=== PATIENT | female | born 1955 | race Caucasian/White ===

== ENCOUNTER 2024-10-22 10:44 | Outpatient (AMB) | payer MEDICARE, SELFPAY ==
--- NOTE | 2024-10-22 10:57 | A.SPINEOV_ITS ---
Intake Visit Reasons: stenosis lumbar region Intake Note: Ms. Thakkar is here today c/o bilateral leg symptoms. MRI done @ [place] (brought disc). Manager Consumer Required: No Assessment & Plan Assessment & Plan (1) Lumbar stenosis with neurogenic claudication: Code(s): M48.062 - Spinal stenosis, lumbar region with neurogenic claudication Category: Medical Plan: Dear colleague Thank you for referring Zandra Thakkar to the office today with a chief complaint of numbness and discomfort down both legs. HPI: This 69-year-old female with a history of an L4-5 lumbar fusion 10 years ago, presents with progressive signs of numbness and tingling down both legs. She has a constant numbness in her feet that extends up to both legs and thighs to the buttocks when she is walking the legs are giving out sometimes the numbness produces balance problems. She also had an episode of fecal incontin ence. The symptoms started 3 months ago and are rapidly progressive. She does have sharp pain in her posterior thighs and buttocks with frequent cramping with the main symptoms is the progressive numbness. The following conservative treatment options were tried without success antiinflammatories, tylenol, physical therapy PMH: Hypertension, GERD, osteoarthritis, osteopenia Medications: Osteo Bi flex, omeprazole, duloxetine, lisinopril, ibuprofen Allergies: NKDA Social history: [] Physical Exam: Height 5'1 weight 110 lb. Has a lumbar degenerative scoliosis with the apex towards the right side at L2-3. Motor exam is 5/5 throughout. Sensory exam is diminished with loss of sensation on the lateral side of bilateral thighs and diffuse numbness of the distal part of the lower extrem ities. Knee reflexes are present bilaterally. Ankle reflexes are absent. Radiological Studies: MRI of the lumbar spine done at [place] on 08/22/2024 shows a lumbar degenerative scoliosis. There is adjacent degenerative disc disease above the L4-5 fusion with severe canal stenosis at L3-L4 which is increased compared to an MRI of 2014. There is [id number] bilateral neuroforaminal stenosis at this level as well. Dynamic lumbar x-rays obtained today show again the lumbar degenerative scoliosis. I think there is an auto fusion of L1-2 and L2-3. Impression/Plan: This patient is suffering from adjacent degenerative disc disease with neurogenic claudication and rapid neurological deficits due to severe canal stenosis L3-4. I offered her an oblique lumbar interbody fusion to correct the scoliotic curve at L3-4 and indirectly decompress the nerve roots. I would like to obtain a CT of the lumbar spine to confirm my suspicion that the L1-2 and L2-3 levels are already auto fused. If not then I may have to include these levels in the fusion. Thank you for allowing me to participate in your patients care. total time spent was 50 minutes in counseling ,coordination of plan, personal review of imaging, surgical decision making and subsequent plan Yobani Randall MD, PhD Spine Fellowship Trained Neurosurgeon Director, [facility] (2) Adjacent segment disease of lumbar spine with history of fusion procedure: Code(s): M51.369 - Other intervertebral disc degeneration, lumbar region without mention of lumbar back pain or lower extremity pain; Z98.1 - Arthrodesis status Category: Medical Plan f Orders: Orders XR lumbar spine 4V min Today M48.062 - Spinal stenosis, lumbar region with neurogenic claudication Coding Level of Care Code New Pt Level 4 (78711) Diagnoses Lumbar stenosis with neurogenic claudication M48.062 Adjacent segment disease of lumbar spine with history of fusion procedure M51.369; Z98.1
== END 2024-10-22 11:56 | disposition home or self-care (01) ==
LOC: HO.HNS 10:45
PROVIDERS: PCP Physician Assistant Medical; Referring Provider Physician Assistant Medical; Visit Provider Neurological Surgery
DX: M48.062 Spinal stenosis, lumbar region with neurogenic claudication (principal); M51.369 Other intervertebral disc degeneration, lumbar region without mention of lumbar back pain or lower extremity pain; Z98.1 Arthrodesis status
CPT/HCPCS: 99204

== ENCOUNTER 2024-10-22 10:44 | Outpatient (REF) | payer MEDICARE, SELFPAY ==
--- NOTE | ~2024-10-22 | XR_ITS ---
CLINICAL HISTORY: M48.062 - Spinal stenosis, lumbar region with neurogenic claudication --- Additional Notes or Special Instructions: AP lateral flexion extension Radiographs of the lumbar spine, 4 views including flexion and extension Comparison: None available Findings: Status post posterior fusion at L4/L5. Intact hardware. Mild dextrocurvature with the apex at L2 and levocurvature with the apex at L4/L5. Mild multilevel anterolisthesis/retrolisthesis, degenerative. No evidence of instability. No fracture. The vertebral body heights are preserved. There is severe multilevel intervertebral disc space narrowing with large endplate osteophytosis and sclerosis. Vascular calcifications. Impression: No acute findings. Status post posterior fusion at L4/L5 with intact hardware. Severe degenerative change. This document has been electronically signed by: Trish Mojica MD on 10/22/2024 17:09:00
== END 2024-10-22 10:45 | disposition home or self-care (01) ==
LOC: HO.HOSX 10:44
PROVIDERS: PCP Physician Assistant Medical; Referring Provider Physician Assistant Medical; Visit Provider Neurological Surgery
DX: M48.062 Spinal stenosis, lumbar region with neurogenic claudication (principal); M51.369 Other intervertebral disc degeneration, lumbar region without mention of lumbar back pain or lower extremity pain; Z98.1 Arthrodesis status
CPT/HCPCS: 72110; 99202

== ENCOUNTER → 2024-10-22 11:24 | Outpatient (BNV) | payer MEDICARE, SELFPAY | PROVIDERS: PCP Physician Assistant Medical; Referring Provider Physician Assistant Medical; Visit Provider Radiology Diagnostic Radiology | DX: M51.369 Other intervertebral disc degeneration, lumbar region without mention of lumbar back pain or lower extremity pain (principal) | CPT/HCPCS: 72110 ==

== ENCOUNTER 2024-11-13 07:56 | Outpatient (REF) | payer MEDICARE, SELFPAY ==
--- NOTE | ~2024-11-13 | CT_ITS ---
CLINICAL HISTORY: M51.369 - Other intervertebral disc degeneration, lumbar region without ... Exam: CT lumbar spine without IV contrast Comparison: DX - XR LUMBAR SPINE 4V MIN - 10/22/24 11:24 EDT Findings: Severe levoconvex curvature of the lumbar spine. Enlarged left L5 transverse process with pseudoarthrosis to the sacral ala. No acute fracture. 2 mm retrolisthesis L2-3. 6 mm anterolisthesis L4-5, status post right laminotomy and bilateral pedicle screws vertical rods stabilization, intact hardware without loosening. Multilevel vertebral osteophytes, degenerative endplate changes. Multilevel disc height loss and facet arthropathy of varying severity. Unremarkable paraspinal musculature. Atherosclerotic disease. Diverticulosis of the colon, no acute diverticulitis. Segmental analysis: T12-L1: Severe disc height loss, diffuse annular disc bulge, mild central canal stenosis and mild left foraminal narrowing. No right foraminal narrowing. L1-2: Severe disc height loss, annular disc bulge and vertebral osteophyte complex. Mild central canal stenosis, moderate left foraminal narrowing. Mild right foraminal narrowing. L2-3: Moderate to severe disc height loss. Diffuse annular disc bulge and vertebral osteophyte complex, more conspicuous in the left foraminal to extraforaminal lateral aspect. Mild central canal stenosis, severe left and moderate right foraminal narrowing. L3-4: Moderate disc height loss, vacuum disc phenomena, diffuse annular disc bulge, thickened ligamentum flavum, multifactorial severe central canal stenosis and foraminal narrowing bilaterally. L4-5: Surgical level, central canal and foramina are not well seen due to artifacts, no high-grade central canal stenosis, severe right and moderate left foraminal narrowing mostly due to anterolisthesis. L5-S1: Mild diffuse posterior disc bulge extending to the right foramina. Mild central canal stenosis, moderate right foraminal narrowing. No left foraminal narrowing. Impression: 1. Advanced degenerative spondylosis of lumbar spine, worst at L3-4 with severe central canal stenosis and foraminal narrowing bilaterally. 2. Grade 1 anterolisthesis L2-3 and L4-5, status post L4-5 spinal instrumentation without acute hardware complication, as detailed above. 3. Diverticulosis coli. This document has been electronically signed by: Tanya Armstrong MD on 11/17/2024 11:15:52
== END 2024-11-13 07:57 | disposition home or self-care (01) ==
LOC: HO.CT 07:56
PROVIDERS: PCP Family Medicine; Visit Provider Neurological Surgery
DX: M51.369 Other intervertebral disc degeneration, lumbar region without mention of lumbar back pain or lower extremity pain (principal); Z98.1 Arthrodesis status
CPT/HCPCS: 72131

== ENCOUNTER → 2024-11-13 07:58 | Outpatient (BNV) | payer MEDICARE, SELFPAY | PROVIDERS: PCP Family Medicine; Visit Provider Radiology Diagnostic Radiology | DX: M48.062 Spinal stenosis, lumbar region with neurogenic claudication (principal) | CPT/HCPCS: 72131 ==

== ENCOUNTER 2024-12-07 06:04 | Inpatient (IN) | payer MEDICARE, SELFPAY ==
[2024-11-30 12:00] VITALS: BMI 21.0
[2024-11-30 12:10] VITALS: BP 122/58; PULSE 67; RESP 16; O2SAT 97
--- NOTE | 2024-11-30 12:31 | HO.ANESPROP2 ---
Documented by User: Maricarmen Roque NP 12/08/24 15:15 HPI - Anesthesia Eval Consult details Narrative: 69yo F for L3-4 Oblique Lumbar Interbody Fusion w/Revision of posterior instrumentation, 12/07/24 Medically optimized per PCP No recent illness No CP/SOB with walking intermit throughout the day (up to 20K steps daily!) GERD: ppi controls PMFSH Active Problems Active Problems: All Active Problems Adjacent segment disease of lumbar spine with history of fusion procedure (Acute) Lumbar stenosis with neurogenic claudication (Acute) Past Medical History Medical History Alopecia Anxiety Balance problem Depression Scoliosis Osteopenia Osteoarthritis GERD (gastroesophageal reflux disease) HTN (hypertension) Family History Family history of problems with anesthesia: Yes (father with post op delerium) Surgical History Surgical History (Updated 11/30/24 @ 12:39 by Rita Butt RN) Hx of tonsillectomy Hx of tubal ligation (1990) H/O dilation and curettage (~1975) History of esophagogastroduodenoscopy (EGD) (2012) Hx of colonoscopy (2012) Hx of spinal fusion (2014) History of Problems with Anesthesia: No Social History Social History (Updated 11/30/24 @ 12:16 by Rita Butt RN) Household Members: Children Housing: House Are you a primary career and transition teacher to a significant other at home: No Do you presently have visiting nurse or other home services: No Patient Tobacco Use Status: Former Tobacco user Tobacco use type: Cigarette service: No Meds Allergies Allergy/AdvReac Type Severity Reaction Status Date / Time No Known Allergies Allergy Verified 12/07/24 06:33 Home Medications ?Medication ?Instructions ?Recorded ?Confirmed ?Last Taken ?Type calcium 600 mg (as 1 tab PO DAILY 11/29/24 12/07/24 Unknown History carbonate)-vitamin D3 10 mcg (400 unit) tablet (Calcium with Vitamin D) duloxetine 30 mg capsule,delayed 30 mg PO DAILY 11/29/24 12/07/24 12/07/24 04:45 History release lisinopril 20 1 tab PO DAILY 11/29/24 12/07/24 Unknown History mg-hydrochlorothiazide 12.5 mg tablet omeprazole 20 mg capsule,delayed 20 mg PO DAILY 11/29/24 12/07/24 12/07/24 04:45 History release turmeric 11/29/24 11/23/24 History omega-3 fatty acids PO 12/07/24 11/23/24 History Held on 12/08/24. Instructions: Resume on 01/07/25. Exam Height,Weight and Vital Signs: Height 5 ft 0.75 in Weight 49.895 kg Last Vital Signs Pulse 67 11/30/24 12:10 Resp 16 11/30/24 12:10 BP 122/58 L 11/30/24 12:10 Pulse Ox 97 11/30/24 12:10 O2 Del Method Room Air 11/30/24 12:10 Pertinent Lab Results Pertinent Lab Results: BMP 11/2024 from outside facility [place] Lab Results 11/30/24 11/30/24 Range/Units 13:03 13:12 WBC 6.9 (4.8-10.8) X10*3/uL RBC 3.97 L (4.20-5.50) X10*6/uL Hgb 12.8 (12.0-16.0) g/dl Hct 37.6 (37.0-47.0) % MCV 94.7 (80.0-98.0) fL MCH 32.2 (27.0-33.0) pg MCHC 34.0 (31.0-35.0) g/dl RDW 13.5 (11.0-16.0) % Plt Count 254 (160-400) X10*3/uL MPV 10.0 (9.4-12.3) fL Absolute Nucleated RBC 0.000 (0.0-0.012) X10*3/uL Nucleated RBC % (auto) 0.0 (0.0-0.2) /100WBC Blood Type A Positive Antibody Screen NEGATIVE Narrative Narrative: EKG 11/2024 SB @ 56 LAE Anteroseptal infarct No acute ST elevation or depression Airway Mallampati Class: I TM Dist: >3cm Neck ROM: Full (OA) Loose/Missing/Broken Teeth: Yes (Permanent bridge upper front) Heart: RRR Lungs: CTAB Assessment and Plan Assessment Anesthesia Assessment: Anesthesia Plan Discussed and PAT Visit Final Anesthetic Review Family History of Problems with Anesthesia: Yes (father with post op delerium) History of Problems with Anesthesia: No Documented by User: Doris Ring NP 12/03/24 09:51 HPI - Anesthesia Eval Consult details Narrative: 69yo F for L3-4 Oblique Lumbar Interbody Fusion w/Revision of posterior instrumentation, 12/07/24 Medically optimized per PCP No recent illness No CP/SOB with walking intermit throughout the day (up to 20K steps daily!) GERD: ppi controls PMFSH Past Medical History Medical History Alopecia Anxiety Balance problem Depression Scoliosis Osteopenia Osteoarthritis GERD (gastroesophageal reflux disease) HTN (hypertension) Surgical History Surgical History (Updated 11/30/24 @ 12:39 by Rita Butt RN) Hx of tonsillectomy Hx of tubal ligation (1990) H/O dilation and curettage (~1975) History of esophagogastroduodenoscopy (EGD) (2012) Hx of colonoscopy (2012) Hx of spinal fusion (2014) Social History Social History (Updated 11/30/24 @ 12:16 by Rita Butt RN) Household Members: Children Housing: House Are you a primary career and transition teacher to a significant other at home: No Do you presently have visiting nurse or other home services: No Patient Tobacco Use Status: Former Tobacco user Tobacco use type: Cigarette service: No Meds Allergies Allergy/AdvReac Type Severity Reaction Status Date / Time No Known Allergies Allergy Verified 12/07/24 06:33 Home Medications ?Medication ?Instructions ?Recorded ?Confirmed ?Last Taken ?Type calcium 600 mg (as 1 tab PO DAILY 11/29/24 12/07/24 Unknown History carbonate)-vitamin D3 10 mcg (400 unit) tablet (Calcium with Vitamin D) duloxetine 30 mg capsule,delayed 30 mg PO DAILY 11/29/24 12/07/24 12/07/24 04:45 History release lisinopril 20 1 tab PO DAILY 11/29/24 12/07/24 Unknown History mg-hydrochlorothiazide 12.5 mg tablet omeprazole 20 mg capsule,delayed 20 mg PO DAILY 11/29/24 12/07/24 12/07/24 04:45 History release turmeric 11/29/24 11/23/24 History omega-3 fatty acids PO 12/07/24 11/23/24 History Held on 12/08/24. Instructions: Resume on 01/07/25. Documented by User: Renato Torres MD 12/09/24 13:42 FOR[facility]LY [facility], [facility] Past Medical History Medical History Alopecia Anxiety Balance problem Depression Scoliosis Osteopenia Osteoarthritis GERD (gastroesophageal reflux disease) HTN (hypertension) Surgical History Surgical History (Updated 11/30/24 @ 12:39 by Rita Butt RN) Hx of tonsillectomy Hx of tubal ligation (1990) H/O dilation and curettage (~1975) History of esophagogastroduodenoscopy (EGD) (2012) Hx of colonoscopy (2012) Hx of spinal fusion (2014) Social History Social History (Updated 11/30/24 @ 12:16 by Rita Butt RN) Household Members: Children Housing: House Are you a primary career and transition teacher to a significant other at home: No Do you presently have visiting nurse or other home services: No Patient Tobacco Use Status: Former Tobacco user Tobacco use type: Cigarette service: No Meds Allergies Allergy/AdvReac Type Severity Reaction Status Date / Time No Known Allergies Allergy Verified 12/07/24 06:33 Home Medications ?Medication ?Instructions ?Recorded ?Confirmed ?Last Taken ?Type calcium 600 mg (as 1 tab PO DAILY 11/29/24 12/07/24 Unknown History carbonate)-vitamin D3 10 mcg (400 unit) tablet (Calcium with Vitamin D) duloxetine 30 mg capsule,delayed 30 mg PO DAILY 11/29/24 12/07/24 12/07/24 04:45 History release lisinopril 20 1 tab PO DAILY 11/29/24 12/07/24 Unknown History mg-hydrochlorothiazide 12.5 mg tablet omeprazole 20 mg capsule,delayed 20 mg PO DAILY 11/29/24 12/07/24 12/07/24 04:45 History release turmeric 11/29/24 11/23/24 History omega-3 fatty acids PO 12/07/24 11/23/24 History Held on 12/08/24. Instructions: Resume on 01/07/25. Assessment and Plan Final Anesthetic Review NPO: Yes ASA Class: III Final Preanesthetic Review: No Changes in Pt Med Stat, Meds/Allgs Chart Reviewed, Consent Obtained/Reviewed and Anes Risks/Benef Reviewed Patient Risk: Intermediate Procedure Risk: Low Anesthetic Plan Anesthetic Plan: GA Disposition: Standard PACU
[2024-11-30 14:04] LABS: Hematocrit 37.6 % (37.0-47.0); Hemoglobin 12.8 g/dl (12.0-16.0); Mean Corpuscular HGB Conc 34.0 g/dl (31.0-35.0); Mean Corpuscular Hemoglobin 32.2 pg (27.0-33.0); Mean Corpuscular Volume 94.7 fL (80.0-98.0); NRBC Abs Auto 0.000 X10*3/uL (0.0-0.012); NRBC Pct Auto 0.0 /100WBC (0.0-0.2); Platelet Count 254 X10*3/uL (160-400); Red Blood Count 3.97 X10*6/uL (4.20-5.50); White Blood Count 6.9 X10*3/uL (4.8-10.8)
[2024-12-07] VITALS (19 sets, daily range): BP systolic 83–139; BP diastolic 40–90; PULSE 53–69; RESP 12–17; TEMP 34.7–36.6; O2SAT 94–99; BMI 21.5; BMI 21.4
--- NOTE | ~2024-12-07 | FL_ITS ---
EXAMINATION: XR FLUOROSCOPY WITH IMAGES CLINICAL INFORMATION: L3-4 OLIF with revision COMPARISON: CT lumbar spine 11/13/2024. TECHNIQUE: Fluoroscopy provided to: Dr. Randall Fluoroscopy time: 0.2 minutes DAP: 0.967 Gycm2 Images: 2 FINDINGS: 2 fluoroscopic spot images obtained during L3-4 OLIF with revision. Please refer to the full operative report for details. FL/FL guidance in OR IMPRESSION: Fluoroscopic guidance. Electronically signed by: Ashok Nielsen MD 12/07/2024 10:35 AM EDT
[2024-12-07] MEDS: Lactated Ringers 1,000 ML 100 ML IVCONT (06:44)
--- NOTE | 2024-12-07 07:08 | MHC.SHP ---
Pre-Procedural Eval Section A - 24 Hr Update-Section A only Date of Service: 12/07/24 The patient is an INPATIENT: No Changes since office visit: No Cold of Flu in the past 2 weeks, No New Medical Problems, No Changes in Medication and No Patient answered all questions The patient has been examined within 24 hours of the surgical procedure. The History & Physical has been completed within 30 days and I have reviewed it.: No Section B - Complete if H&P > 30 days Chief Complaint: s/p L3-4 OLIF Allergies: Allergies Allergy/AdvReac Type Severity Reaction Status Date / Time No Known Allergies Allergy Verified 12/07/24 06:33 Review of Systems Sugical H&P ROS: Negative: Constitution, Cardiovascular, Respiratory, Neurological, Psychiatric, Hem-Onc, Allergic/Immunologic, Gastrointestinal, Genitourinary, Musculoskeletal, Integumentary, Endocrine and Eyes/Ears/Nose/Throat Exam Surgical H&P Exam: Normal: HEENT, Normal: Heart, Normal: Lungs, Normal: Extremities, Normal: Abdomen, Normal: Skin and Normal: Neurological (awake, alert,oriented x 3 ) Plan Diagnosis/Plan: Unchanged L3-4 oblique lumbar interbody fusion with revision of posterior instrumentation Time Spent With Patient Time: Total time managing care of this patient today __5__ minutes.
--- NOTE | 2024-12-07 07:12 | PHA.MEDREC ---
Pharmacy Consult ? Medication Reconciliation Pharmacy has completed the medication reconciliation. Reviewed med rec done by nursing.
--- NOTE | 2024-12-07 09:47 | P.OP_ITS ---
Operative Note Operative Note Date of Service: 12/07/24 Narrative: Preop Diagnosis: 1.) Adjacent degenerative disc disease L3-4 2.) Lumbar degenerative scoliosis Procedure: 1) L3-4 discectomy, arthrodesis and implantation cage through an anterolateral, retroperitoneal approach 2) removal L4 and L5 posterior instrumentation 3) insertion posterior instrumentation L3 and L4 4) posterolateral fusion L3-L4 5) allograft Consent Informed Consent was obtained for this operation. I have explained the nature, purpose and benefits of the operation. I have discussed the risks and benefit of the operation including possible complications or adverse events with patient/family. Alternative(s) were discussed with the patient with their relative benefits and risks as well as the consequences of not accepting the operation were included in obtaining consent. Surgeon: SUSAN LAMAS MD, PHD Procedure Assisted By: clifton Almeida Description of Procedure This patient had an L4-5 lumbar fusion done in another institution 10 years ago. She presented with adjacent degenerative disc disease and development of a lumbar degenerative scoliosis. The patient was offered an oblique lumbar interbody fusion L3-4 and revision of posterior instrumentation. The procedure and complications were explained. The patient was consented. The patient was brought to the operating room and endotracheally intubated. The patient was turned in a lateral position with the left side up. Prep and drape was done followed by timeout. A small incision was made in the left lower abdominal quadrant. The muscle fascia was opened after which the 3 muscle layer was split to enter the retroperitoneal space. Dilators were docked in the anterior one third of the L3-L4 disc space followed by a retractor. The retractor was opened. The L3-L4 disc space was exposed. An annulotomy was done after which an elevator Sorto was used to release the disc material from its endplates and to perforate the contralateral side. A partial discectomy was done. An 8 mm height trial implant was inserted. The discectomy was completed. The endplates were prepared. An 8 mm x 45 mm with 0 degree lordosis 4 web cage filled with allograft was inserted into the disc space under fluoroscopic guidance. This resulted in el evation of the disc space and correction of the adjacent scoliosis. The retractor was removed. Hemostasis was done. The incision was closed in 2 layers. Steri-Strips used to approximate incision. An OpSite with Tegaderm was used to cover the incision. This marked first part of the procedure. The patient was turned prone on the [place] spine table. 2C arms were installed for fluoroscopy. Prep and drape was done followed by a second timeout. Two paramedian incisions were made lateral from the previous placed L4-5 instrumentation. The instrumentation was exposed. The locking caps were removed. Bone had to be removed from the rods for we could finally take them out bilaterally. Then the Medtronic screws were removed from the L4 and L5 levels. A 7.5 x 45 mm screw was reinserted in the bilateral L4 pedicles.The following steps were taken. A pediguard tap was used to create a transpedicular trajectory into the vertebral body. A K wire was placed. A specially designed instrument was advanced over the K wire to decorticate the posterolateral gutter in preparation for the posterolateral fusion. A pedicle screw was advanced over the K wire and the K wire was removed. The steps were done for the bilateral L3 pedicles were a 6.5 x 45 mm screw was inserted bilaterally. Pedicle screws were connected with 50 mm anam bilaterally and locked down with locking caps. The extension towers were removed. The posterolateral gutter was filled with allograft to complete the posterolateral L3-4 fusion Hemostasis was done and the incision was closed in 2 layers. Steri-Strips were used to approximate the incision. An OpSite with tegaderm was used to cover the incision. All sponge and needle counts were correct. Patient was extubated and transferred in stable is to recovery room. Anesthesia: General Estimated Blood Loss (ml): 80 Duration of Surgery: 2 hours Complications: None Postoperative Plan: Admit to inpatient for clinical observation
--- NOTE | 2024-12-07 16:32 | PC.NURSE ---
Patient up and ambulated to bathroom with 2A and walker, patient had occasional knee buckling. Provider Stas's came to bedside, and felt patient's forehead and reported that she doesn't need the bare hugger because she doesn't feel cold and she is awake, alert, oriented and conversing.
[2024-12-08] MEDS: oxyCODONE HCl Immed Release 5 MG TABLET PO ×2 (01:28→08:57)
[2024-12-08 03:03] VITALS: BP 115/59; PULSE 57; RESP 16; TEMP 36; O2SAT 95
--- NOTE | 2024-12-08 07:27 | PM.DS ---
DS: Providers Provider Date of Service: 12/08/24 Date of admission: 12/07/24 06:04 Date of discharge: 12/08/24 Primary care physician: Julita Orellana MD DS: Summary Time Attestation Discharge Coordination Time (in mins): 12 Quality: Safe Use of Opioids Does Pt have an Active Cancer Diagnosis on the Problem List?: No Quality: Stroke Does the patient have a stroke diagnosis?: No Physical Exam Vital Signs: Vital Signs: Last Vital Signs Temp 96.8 F 12/08/24 03:03 Pulse 57 12/08/24 03:03 Resp 16 12/08/24 03:03 BP 115/59 L 12/08/24 03:03 Pulse Ox 95 12/08/24 03:03 O2 Del Method Room Air 12/08/24 03:03 BMI result Body Mass Index 21.4 Discharge Plan Discharge Anticipated Discharge Date/Time: 12/08/24 07:28 Patient Disposition: Home, Self-Care Discharge Diagnosis: s/p L3-4 OLIF Referrals: Julita Orellana MD [Primary Care Provider, Family Practice] - 1 Week Discharge Medications: New oxycodone 5 mg tablet 5 mg PO Q4H PRN (Reason: pain) Qty: 30 0RF Rx Instructions: Partial Fill upon patient request. docusate sodium 100 mg capsule 100 mg PO BID PRN (Reason: constipation) Qty: 30 0RF Continued lisinopril-hydrochlorothiazide 20-12.5 mg tablet 1 tab PO DAILY omeprazole 20 mg capsule,delayed release(DR/EC) 20 mg PO DAILY duloxetine 30 mg capsule,delayed release(DR/EC) 30 mg PO DAILY calcium carbonate-vitamin D3 [Calcium with Vitamin D] 600 mg-10 mcg (400 unit) Tablet 1 tab PO DAILY turmeric Held Fish Oil Capsule PO Hold Instructions: Resume on 01/07/25. Diet: Advance to usual diet Activity on Discharge: As tolerated Stand Alone Forms: Patient Portal Discharge page Print Language: Portuguese Activity Restrictions/Additional Instructions: After your spinal surgery we ask you to observe the following restrictions/guidelines: Activity: It is normal to feel some discomfort as you increase your activity, but that will improve with time. We ask you avoid heavy lifting or acitivities that cause pain. As a general rule, 8lbs is a safe limit for lifting right after surgery. Walk as much as you feel comfortable but not to exhaustion. You will feel extra tired the first few days after surgery. Stay well hydrated. It is OK to walk up and down stairs You may return to driving when you are off narcotics (such as vicodin, oxycodone, dilaudid, etc), and you are back to normal functional capacity. If you have any concerns please check with office before driving. Return to work is specific to each patient and each surgery, so please speak with your doctor/PA at first follow up. Please bring paperwork such as FMLA at that time if you need it filled out. Medications: Please hold your fish oil for the next few weeks. We recommend you take 1,000mg Tylenol every 8 hours for the first few weeks after surgery, if you do not have any liver issues and can tolerate this medication. Do not exceed 4,000mg daily. We will give you a short supply of narcotics after surgery (usually one weeks worth). If you need more please call the office but do not use more than prescribed. You will need to give our office 48 hours notice if you need narcotics refilled and we do not fill narcotics on weekends or evenings. If you are on a narcotic, it is a good idea to take a stool softener such as colace or senna to avoid constipation If you take blood thinner such as aspirin, Plavix, Coumadin, Effient, Eliquis etc for conditions such as Afib, DVT, Pulmonary embolus, coronary disease, stents etc please speak with your surgeon about specific details as to when you can resume these medications. You can resume NSAIDs on post op day 1 (eg: Motrin, Naproxen, etc). Follow up: Please call the office, , after surgery to arrange a 3 week follow up for wound check. Wound Care: You may remove your dressing on the first day after surgery. ?You may ?leave open to air. Please do not remove the steri strips underneath. they will fall off on their own in one week. IT IS NORMAL FOR THE WOUND TO OOZE OR BE BLOODY FOR A FEW DAYS AFTER SURGERY. ?IF THIS HAPPENS JUST PLACE NEW DRESSING OVER IT TO AVOID STAINING CLOTHES. You may shower on post op day # 1 We ask that you do not let the water soak the wound. If it does get wet, just towel dry lightly. Please do not scrub your incision or place any type of chemical/ointment on the wound. No tub baths, pools or jacuzzis for one month. If you have any leaking or redness from your wound, or fevers, please call the office. Care Plan Goals: return to normal activity as tolerated Health Concerns: none Plan of Treatment: follow up in clinic in 2-3 weeks Assessment: POD: 1 Procedure: L3-4 OLIF Zandra is a pleasant 69-year-old female who underwent L3-[address] Randall yesterday. She has done very well overall since her surgery. She reports she has been up out of bed to the bathroom to void. She has thus far been walking primarily with the assistance of a walker. She reports she is voiding well & tolerating a regular diet. She feels her pain is presently well controlled with her current pain regimen. Afebrile, vital signs stable. Full strength 5/5 in bilateral LE's. Back and lateral dressings have some staining without signs of hematoma. No active sanguineous drainage. Area is dry. Plan: Pleasant 69-year-old female who underwent L3-[address] Randall yesterday. Patient meets criteria to be medically discharged home. We'll have her see PT first re: DME recommendations and home PT recs. She was seen at bedside with Dr. Randall. I sent in an Rx for Pain control (Oxycodone) and constipation ppx (Docusate sodium) to [facility] pharmacy. Xavier Randall MD,PhD [facility]
--- NOTE | 2024-12-08 07:39 | HO.NEURO.PN ---
Neurosurgery Operative Note Date of Service: 12/08/24 Narrative: POD: 1 Procedure: L3-4 OLIF Zandra is a pleasant 69-year-old female who underwent L3-[address] Randall yesterday. She has done very well overall since her surgery. She reports she has been up out of bed to the bathroom to void. She has thus far been walking primarily with the assistance of a walker. She reports she is voiding well & tolerating a regular diet. She feels her pain is presently well controlled with her current pain regimen. Afebrile, vital signs stable. Full strength 5/5 in bilateral LE's. Back and lateral dressings have some staining without signs of hematoma. No active sanguineous drainage. Area is dry. Plan: Solitario 69-year-old female who underwent L3-[address] Randall yesterday. Patient meets criteria to be medically discharged home. We'll have her see PT first re: DME recommendations and home PT recs. She was seen at bedside with Dr. Randall. I sent in an Rx for Pain control (Oxycodone) and constipation ppx (Docusate sodium) to [facility] pharmacy. Xavier Randall MD,PhD [facility]
[2024-12-08 07:40] VITALS: BP 129/59; PULSE 71; RESP 18; TEMP 36.2; O2SAT 98
--- NOTE | 2024-12-08 08:27 | HO.POSTANES ---
Post Anesthesia Evaluation Post Anesthesia Evaluation Date of Service: 12/08/24 Vital Signs: Vital Signs Temp Pulse Resp BP Pulse Ox O2 Del Method 12/08/24 07:40 97.1 F 71 18 129/59 L 98 Room Air 12/08/24 03:03 96.8 F 57 16 115/59 L 95 Room Air Anesthesia: General Mental Status: Awake Pain Control: Satisfactory Nausea/Vomiting: None Hydration: Adequate Anesthesia-Related Issues: No Anes. Related Issues
[2024-12-08] MEDS: lisinopriL 20 MG, hydroCHLOROthiazide 12.5 MG PO (08:57)
[2024-12-08] MEDS: Calcium + Vitamin D 250 MG TABLET 500 MG PO (08:57)
--- NOTE | 2024-12-08 09:50 | MHC.CM.PN ---
pt lives with family members has a ride home pt receommended homew/services dc plan home w/vna
--- NOTE | 2024-12-08 11:02 | W.MHC.F2F ---
Service Date Service Date: 12/08/24 Encounter Date of encounter: 12/08/24 Reasons for Services Signs and symptoms assessed: S/P l3-4 olif Reason for [place] [facility]: neurological assessment, wound care, postoperative assessment and/or care and medication treatment Reason for physical therapy: home safety and mobility, therapeutic exercises, restore joint function, gait/transfer training and ADL training Homebound: Leaving the home is medically contraindicated at this time without the asist of a device and/or another person due th the listed conditions above and below. Reason homebound: unsteady gait / fall risk, leg weakness, pain with ambulation and weakness related to hospital stay Certification: Based on the above findings, I certify that this patient is confined to the home and needs intermittent [facility] [facility] care, physical therapy and/or speech therapy, or continues to need occupational therapy. The patient is under my care, and I have initiated the establishment of the plan of care. The patient will be followed by a physician who will periodically review the plan of care. Time Spent With Patient Time: Total time managing care of this patient today ___7_ minutes.
--- NOTE | 2024-12-08 11:17 | MHC.CM.PN ---
pt is dcd home with [facility]
== END 2024-12-08 12:33 | disposition home health service (06) | DRG 458 ==
LOC: HO.SSSA 06:13 → HO.S3 12:38
PROVIDERS: Neurological Surgery; Nurse Practitioner; Admitting Provider Physician Assistant; PCP Family Medicine; Visit Provider Physician Assistant
PROC: 0SG00A0 Fusion of Lumbar Vertebral Joint with Interbody Fusion Device, Anterior Approach, Anterior Column, Open Approach (ICD-10-PCS; principal; 2024-12-07 07:30)
DX: M51.369 Other intervertebral disc degeneration, lumbar region without mention of lumbar back pain or lower extremity pain (principal); M41.56 Other secondary scoliosis, lumbar region; Z87.891 Personal history of nicotine dependence; Z79.899 Other long term (current) drug therapy
CPT/HCPCS: 36415; 85027; 86850; 86900; 86901; 97161; C1713; C1889; J0131; J0665; J0690; J1100; J1171; J1885; J2003; J2250; J2405; J2704; J3010; L8699

== ENCOUNTER → 2024-12-07 06:04 | Outpatient (BNV) | payer MEDICARE, SELFPAY | PROVIDERS: Admitting Provider Physician Assistant; PCP Family Medicine; Visit Provider Neurological Surgery | DX: M51.369 Other intervertebral disc degeneration, lumbar region without mention of lumbar back pain or lower extremity pain (principal); M41.26 Other idiopathic scoliosis, lumbar region | CPT/HCPCS: 20930; 22558; 22612; 22840; 22853; 99024; 99499; G0180 ==

== ENCOUNTER 2024-12-28 11:35 | Outpatient (REF) | payer MEDICARE, SELFPAY | END 2024-12-28 11:36 | disposition home or self-care (01) | LOC: HO.HOSX 11:35 | PROVIDERS: PCP Family Medicine; Visit Provider Physician Assistant | DX: M48.062 Spinal stenosis, lumbar region with neurogenic claudication (principal) | CPT/HCPCS: 99212 ==

== ENCOUNTER 2024-12-28 11:35 | Outpatient (AMB) | payer MEDICARE, SELFPAY ==
--- NOTE | 2024-12-28 11:40 | A.SPINEOV_ITS ---
Intake Visit Reasons: 1st post op Intake Note: Ms. Thakkar is here today for her 1st post op. [facility] Required: No Allergies No Known Allergies Allergy (Verified 12/07/24 06:33) Assessment & Plan Assessment & Plan (1) Lumbar stenosis with neurogenic claudication: Code(s): M48.062 - Spinal stenosis, lumbar region with neurogenic claudication Category: Medical Plan Mrs Thakkar is 3 weeks out from her L3-4 oblique lumbar interbody fusion with revision of posterior instrumentation. She has had tremendous relief of the claudicating numbness and pain that she had before surgery. However, immediately after surgery she noticed numbness of her right knee radiating into her medial tibial region. She also noticed weakness of her right hip flexor in her right quad. Specifically when getting out of a chair or going up and down stairs it felt unsteady gait was going to hold her. It seems to be getting better over time and she is now not using a walker and feels more confident when she is up and moving around. She has no pain shooting down the leg. Her wounds have all healed up nicely on examination, on motor testing she has subtle weakness of the right hip flexor and right quadriceps. I would rate it as 4-5 She has absent reflexes bilaterally in the patella. I reassured her that I think the numbness and weakness of her leg with some kind of nerve irritation, but that it should get better over time. It seems to be getting better on its own for now. I told her to call me in a few weeks if it is not continuing to improve and I can always order a CAT scan. We can check the placement of the screws. If it continues to improve I will just see her in 6 weeks' time with a set of x-rays. Louis Randall MD, PhD [facility] Orders: Orders PT Evaluation and Treatment Today M48.062 - Spinal stenosis, lumbar region with neurogenic claudication XR lumbar spine 4V min Today M48.062 - Spinal stenosis, lumbar region with neurogenic claudication Coding Level of Care Code Global (92597) Diagnoses Lumbar stenosis with neurogenic claudication M48.062
== END 2024-12-28 12:57 | disposition home or self-care (01) ==
LOC: HO.HNS 11:35
PROVIDERS: PCP Family Medicine; Visit Provider Physician Assistant
DX: M48.062 Spinal stenosis, lumbar region with neurogenic claudication (principal)
CPT/HCPCS: 99024

== ENCOUNTER 2025-02-07 11:21 | Outpatient (AMB) | payer MEDICARE, SELFPAY ==
--- NOTE | 2025-02-07 11:31 | HO.SPINEOV ---
Intake Visit Reasons: 2nd post op Intake Note: Ms. Thakkar is here today for her 2nd post op. Receiving Weigher Required: No Allergies No Known Allergies Allergy (Verified 02/07/25 11:31) Assessment & Plan Assessment & Plan (1) Lumbar stenosis with neurogenic claudication: Code(s): M48.062 - Spinal stenosis, lumbar region with neurogenic claudication Category: Medical Plan Mrs Thakkar is here for her 2nd follow-up. The weakness in the right leg is improving. She has been very active with physical therapy. She takes minimal medications if any at all for her pain. She is able to stand up out of a chair independently and the little bit of weakness she had in her right hip flexor seems to be gone on my examination. Quadriceps strength is normal. We discussed activity guidelines, restrictions and expectations after lumbar fusion. I will see her back in 2-3 months. I will have her get a set of x-rays today before she leaves just to have a baseline for her hardware. Louis Randall MD, PhD [facility] Coding Level of Care Code Global (21211) Diagnoses Lumbar stenosis with neurogenic claudication M48.062
== END 2025-02-07 12:13 | disposition home or self-care (01) ==
LOC: HO.HNS 11:21
PROVIDERS: PCP Family Medicine; Visit Provider Physician Assistant
DX: M48.062 Spinal stenosis, lumbar region with neurogenic claudication (principal)
CPT/HCPCS: 99024

== ENCOUNTER → 2025-02-07 12:05 | Outpatient (BNV) | payer MEDICARE, SELFPAY | PROVIDERS: Visit Provider Radiology Diagnostic Radiology | DX: M48.062 Spinal stenosis, lumbar region with neurogenic claudication (principal); M51.369 Other intervertebral disc degeneration, lumbar region without mention of lumbar back pain or lower extremity pain | CPT/HCPCS: 72110 ==

== ENCOUNTER 2025-02-07 12:10 | Outpatient (REF) | payer MEDICARE, SELFPAY ==
--- NOTE | ~2025-02-07 | XR_ITS ---
EXAMINATION: XR LUMBAR SPINE 4 OR MORE VIEWS HISTORY: M48.062 - Spinal stenosis, lumbar region with neurogenic claudication COMPARISON: Comparison is made with the prior examination dated 10/22/2024. FINDINGS: AP, and neutral, flexion, and extension lateral views of the lumbar spine are submitted. The bones are osteopenic. The patient is again noted to be status post posterior fusion of L3 and L4 with pedicle screws and spinal stabilization rods. A new disc prosthesis is noted at this level. There is moderate dextroscoliosis. There is moderate degenerative disc disease with disc space narrowing and osteophyte formation. The vertebral bodies maintain normal height. Evaluation for spondylolisthesis is limited by obliquity. No definite abnormal motion is seen with flexion or extension. There is calcification of the abdominal aorta. XR/XR lumbar spine 4V min IMPRESSION: Status post posterior fusion of L3 and L4. Osteopenia and moderate dextroscoliosis. Diffuse moderate degenerative disc disease. Electronically signed by: Paulino Wyatt MD 02/07/2025 12:20 PM [facility]
== END 2025-02-07 12:11 | disposition home or self-care (01) ==
LOC: HO.HOSX 12:10
PROVIDERS: Visit Provider Physician Assistant
DX: Z47.89 Encounter for other orthopedic aftercare (principal); M48.062 Spinal stenosis, lumbar region with neurogenic claudication; R29.898 Other symptoms and signs involving the musculoskeletal system; Z98.1 Arthrodesis status
CPT/HCPCS: 72110; 99212